=== PATIENT | female | born 1985 | race Caucasian/White ===

== ENCOUNTER 2017-06-19 18:40 | Emergency (ER) | payer MEDICAID, OTHER ==
[2017-06-19 20:26] LABS: Urine Blood 2+ (NEG); Urine Glucose NEGATIVE (NEG); Urine Protein 1+ (NEG)
[2017-06-19 20:33] LABS: Absolute Monocytes 0.8 K/uL (0.1-1.3); Absolute Neutrophil 10.6 K/uL (1.8-8.0); Basophils % 1.5 % (0-1.3); Hematocrit 39.2 % (36.0-45.0); Lymphocytes % 14.6 % (15.3-44.8); MCV 92.6 fL (80-100); MPV 8.2 fL (7.6-11.3); RBC Red Blood Cell Count 4.24 M/uL (3.86-4.86)
[2017-06-19 20:44] LABS: Bicarbonate 27 mEq/L (21-31); Glucose Level 90 mg/dL (65-120); Potassium 3.4 mEq/L (3.6-5.0); Sodium Level 134 mEq/L (135-145)
[2017-06-19 20:45] LABS: BUN Blood Urea Nitrogen 10 mg/dL (6-20); Glomerular Filtration Rate > 90 mL/min (=/>90)
--- NOTE | 2017-06-19 21:00 | RAD REPORT ---
EXAM DESCRIPTION: US - Transvaginal OB - 06/19/2017 8:42 pm CLINICAL HISTORY: Vaginal bleeding, history of COMPARISON: None. FINDINGS: A single gestational sac is seen within the uterus. Within the sac is a single pole with crown-rump length measuring 8 mm corresponding to 6 weeks 5 days gestational age. Cardiac activity is normal measuring 115 BPM. 28 x 25 mm subchorionic bleed is seen along the inferior aspect of the gestational sac. IMPRESSION: Single live early intrauterine gestation as detailed above. 28 x 25 mm subchorionic bleed is present inferiorly.
[2017-06-19 21:43] LABS: Platelet Estimate INCR; Platelets, Giant 1; Urine White Blood Cell Casts OK
[2017-06-19 21:44] LABS: Blood Morphology Comment NOT SEEN (NOT SEEN)
--- NOTE | 2017-06-19 22:04 | ER ---
Nurse's Notes [facility] Name: Sujata Raza Age: 31 yrs Sex: Female : 1985 Arrival Date: 06/19/2017 Time: 18:46 Bed 24 Private MD: Diagnosis: Threatened Presentation: 06/19 18:47 Presenting complaint: Patient states: Vaginal bleeding and mild abdominal cramping that hb started approx 3 hrs ago. Pt reports she is 6 weeks , LMP 04/08/17, . Transition of care: patient was not received from another setting of care. Onset of symptoms was June 19, 2017. Care prior to arrival: None. 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 - Social history:: Smoking status: Patient/guardian denies using tobacco. Screenin:02 Abuse screen: Denies threats or abuse. Nutritional screening: No deficits noted. tl3 Tuberculosis screening: No symptoms or risk factors identified. Fall Risk None identified. Assessment: 20:02 Obstetrical Assessment: Patient reports abdominal cramping, vaginal bleeding . General: tl3 Appears comfortable, slender, well groomed, well developed, well nourished, Behavior is calm, cooperative, appropriate for age. Pain: Denies pain. Neuro: Level of Consciousness is awake, alert, obeys commands, Oriented to person, place, time, situation, Appropriate for age. Cardiovascular: Heart tones S1 S2 present. Respiratory: Airway is patent Trachea midline Breath sounds are clear bilaterally. GI: No signs and/or symptoms were reported involving the gastrointestinal system. : No signs and/or symptoms were reported regarding the genitourinary system. EENT: No signs and/or symptoms were reported regarding the EENT system. Derm: No signs and/or symptoms reported regarding the dermatologic system. 20:18 Reassessment: pt to ultra sound. tl3 21:22 Reassessment: Patient appears in no apparent distress at this time. No changes from tl3 previously documented assessment. Patient and/or family updated on plan of care and expected duration. Pain level reassessed. Patient is alert, oriented x 3, equal unlabored respirations, skin warm/dry/pink. pt resting well, no complaints or needs at this time. 22:30 Reassessment: Patient appears in no apparent distress at this time. No changes from tl3 previously documented assessment. Patient and/or family updated on plan of care and expected duration. Pain level reassessed. Patient is alert, oriented x 3, equal unlabored respirations, skin warm/dry/pink. Vital Signs: 18:49 BP 128 / 67; Pulse 96; Resp 16; Temp 98; Pulse Ox 100% on R/A; Weight 61.23 kg; Height hb 5 ft. 4 in. (162.56 cm); Pain 2/10; 21:22 BP 106 / 61; Pulse 73; Resp 18; Pulse Ox 99% on R/A; tl3 22:30 BP 108 / 76; Pulse 68; Resp 18; Pulse Ox 100% ; tl3 18:49 Body Mass Index 23.17 (61.23 kg, 162.56 cm) hb Vitals: 21:37 Heart Tones pt only 6 weeks. tl3 ED Course: 18:46 Patient arrived in ED. mr 18:49 Triage completed. hb 18:49 Arm band placed on right wrist. hb 19:06 Hugh Robbins PA is PHCP. cp 19:06 Isrrael Landaverde MD is Attending Physician. cp 19:29 Pearl Cabrera, PEPE is Primary Nurse. tl3 20:02 Resting quietly. tl3 20:02 Patient has correct armband on for positive identification. Placed in gown. Bed in low tl3 position. Call light in reach. Side rails up X 1. Adult w/ patient. 20:02 No provider procedures requiring assistance completed. Inserted saline lock: 22 gauge tl3 in left antecubital area, using aseptic technique. 20:23 Urine --Ancillary (enter results) Sent. tl3 20:23 Urine Dipstick--Ancillary (enter results) Sent. tl3 20:23 HCG, Quantitative Sent. tl3 20:23 Quantitative Hcg Sent. tl3 20:23 Abo/rh Typing Sent. tl3 20:23 Basic Metabolic Panel Sent. tl3 20:23 CBC with Diff Sent. tl3 20:42 Transvaginal OB In Process Unspecified. EDMS 20:44 Ultrasound completed. Patient tolerated well. cy 22:03 Hugh Weller MD is Attending Physician. cp 22:03 Bon Amezcua MD is Referral Physician. cp 22:46 IV discontinued, intact, bleeding controlled, No redness/swelling at site. Pressure tl3 dressing applied. Administered Medications: 06/20 20:25 Not Given (Patient Refused): Potassium Effervescent Tablet 25 mEq PO once; dissolve in tl3 4 ounces of water or juice Point of Care Testing: Urine : 06/19 21:37 hCG Reading: Positive; tl3 Outcome: 22:04 Discharge ordered by . cp 22:46 Discharged to home tl3 22:46 Condition: good 22:46 Discharge instructions given to patient, Instructed on discharge instructions, follow up and referral plans. medication usage, Demonstrated understanding of instructions, follow-up care, medications, Prescriptions given X 1, stressed importance of rest and follow up with TERRITORY ACCOUNT REPRESENTATIVE MORGAN 22:48 Patient left the ED. tl3 Signatures: Dispatcher [employer] EDMS Farnaz Harrison Corey, PA PA cp Baxter, Heather, RN RN Eduardo De La Rosa Tammy, RN RN tl3 Corrections: (The following items were deleted from the chart) 20:42 20:23 To radiology for Transvaginal Study (Probe)+US.[email or web address]. tl3 EDMS
--- NOTE | 2017-06-19 22:04 | EDPHYS ---
Physician Documentation [facility] Name: Sujata Raza Age: 31 yrs Sex: Female : 1985 Arrival Date: 06/19/2017 Time: 18:46 Bed 24 Private MD: ED Physician Hugh Weller HPI: 06/19 20:10 This 31 yrs old Female presents to ER via Ambulatory with complaints of cp Vaginal Bleeding, + Preg <12wks. 20:10 The patient presents to the emergency department with abdominal pain, of the lower cp abdomen, vaginal bleeding, that is light, with no clots. Previous pregnancies: in previous pregnancies patient has had , no complications. Associated signs and symptoms: Pertinent negatives: diarrhea, dysuria, fever, vomiting. 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 - Social history:: Smoking status: Patient/guardian denies using tobacco. ROS: 20:25 Constitutional: Negative for body aches, chills, fever, poor PO intake. cp 20:25 Eyes: Negative for injury, pain, redness, and discharge. cp 20:25 ENT: Negative for drainage from ear(s), ear pain, sore throat, difficulty swallowing, difficulty handling secretions. 20:25 Cardiovascular: Negative for chest pain, edema, palpitations. 20:25 Respiratory: Negative for cough, shortness of breath, wheezing. 20:25 Abdomen/GI: Positive for abdominal pain, of the lower abdomen, Negative for vomiting, diarrhea, constipation, anorexia, black/tarry stool, rectal bleeding. 20:25 Back: Negative for pain at rest, pain with movement, radiated pain. 20:25 : Positive for vaginal bleeding, Negative for urinary symptoms. 20:25 Skin: Negative for cellulitis, rash. 20:25 Neuro: Negative for altered mental status, dizziness, headache, syncope, near syncope, weakness. 20:25 All other systems are negative. Exam: 20:30 Constitutional: The patient appears in no acute distress, alert, awake, comfortable, cp non-toxic, well developed, well nourished. 20:30 Head/Face: Normocephalic, atraumatic. cp 20:30 Eyes: Periorbital structures: appear normal, Conjunctiva: normal, no exudate, no injection, Sclera: no appreciated abnormality, Lids and lashes: appear normal, bilaterally. 20:30 ENT: External ear(s): are unremarkable, Nose: is normal, Mouth: is normal, Posterior pharynx: is normal, airway is patent, no erythema, no exudate. 20:30 Neck: ROM/movement: is normal, is supple, without pain, no range of motions limitations, no nuchal rigidity. 20:30 Chest/axilla: Inspection: normal, Palpation: is normal, no crepitus, no tenderness. 20:30 Cardiovascular: Rate: normal, Rhythm: regular. 20:30 Respiratory: the patient does not display signs of respiratory distress, Respirations: normal, no use of accessory muscles, no retractions, no splinting, no tachypnea, labored breathing, is not present, Breath sounds: are clear throughout, no decreased breath sounds, no stridor, no wheezing. 20:30 Abdomen/GI: Inspection: abdomen appears normal, Bowel sounds: active, all quadrants, Palpation: soft, in all quadrants, mild abdominal tenderness, in the bilateral lower abdomen, rebound tenderness, is not appreciated, voluntary guarding, is not appreciated, involuntary guarding, is not appreciated. 20:30 Back: pain, is absent, ROM is normal. 20:30 Skin: cellulitis, is not appreciated, no rash present. Vital Signs: 18:49 BP 128 / 67; Pulse 96; Resp 16; Temp 98; Pulse Ox 100% on R/A; Weight 61.23 kg; Height hb 5 ft. 4 in. (162.56 cm); Pain 2/10; 21:22 BP 106 / 61; Pulse 73; Resp 18; Pulse Ox 99% on R/A; tl3 22:30 BP 108 / 76; Pulse 68; Resp 18; Pulse Ox 100% ; tl3 18:49 Body Mass Index 23.17 (61.23 kg, 162.56 cm) hb MDM: 19:06 Patient medically screened. 21:00 Differential diagnosis: STD, ectopic . 22:02 Data reviewed: vital signs, nurses notes, lab test result(s), radiologic studies, cp ultrasound, and as a result, I will discharge patient. 22:02 Counseling: I had a detailed discussion with the patient and/or guardian regarding: the cp historical points, exam findings, and any diagnostic results supporting the discharge/admit diagnosis, lab results, radiology results, the need for outpatient follow up, an OB/Gyne specialist, to return to the emergency department if symptoms worsen or persist or if there are any questions or concerns that arise at home. 06/19 20:07 Order name: Quantitative Hcg 06/19 20:07 Order name: Abo/rh Typing; Complete Time: 21:15 06/19 20:07 Order name: Basic Metabolic Panel; Complete Time: 21:59 06/19 21:59 Interpretation: Normal except: NA 134; K 3.4. 06/19 20:07 Order name: CBC with Diff; Complete Time: 21:59 06/19 21:16 Interpretation: Normal except: WBC 13.8; PLT 461; OC% 76.9; LYM% 14.6; BASO% 1.5; NEUT cp A 10.6. 06/19 20:07 Order name: HCG, Quantitative; Complete Time: 21:59 EDMS 06/19 22:00 Interpretation: HCGQ 89121.0; Reviewed. 06/19 20:15 Order name: Urine Dipstick--Ancillary (enter results); Complete Time: 21:15 [facility] 06/19 21:15 Interpretation: Normal except: UBLD 2+; UPROT 1+. 06/19 20:07 Order name: Urine Test (obtain specimen); Complete Time: 20:23 06/19 20:07 Order name: IV Saline Lock; Complete Time: 20:23 06/19 20:07 Order name: Labs collected and sent; Complete Time: 20:23 06/19 20:15 Order name: Urine --Ancillary (enter results); Complete Time: 21:15 [facility] 06/19 21:15 Interpretation: URINE PREG POS; Reviewed. 06/19 20:35 Order name: CBC Smear Scan; Complete Time: 21:59 EDMS 06/19 20:42 Order name: Transvaginal OB; Complete Time: 21:15 EDMS 06/19 20:07 Order name: NPO; Complete Time: 20:23 cp 06/19 20:07 Order name: Urine Dipstick-Ancillary (obtain specimen); Complete Time: 20:23 cp Administered Medications: 06/20 20:25 Not Given (Patient Refused): Potassium Effervescent Tablet 25 mEq PO once; dissolve in tl3 4 ounces of water or juice Point of Care Testing: Urine : 06/19 21:37 hCG Reading: Positive; tl3 Disposition: 06/19/17 22:04 Discharged to Home. Impression: Threatened . - Condition is Stable. - Discharge Instructions: Medicines During , Threatened Miscarriage, Pelvic Rest. - Prescriptions for Vitamin 27- 0.8 mg Oral Tablet - take 1 tablet by ORAL route once daily; 60 tablet. - Medication Reconciliation Form, Thank You Letter, Antibiotic Education, Prescription Opioid Use form. - Follow up: Bon Amezcua MD; When: 1 week; Reason: Recheck today's complaints. - Problem is new. - Symptoms are unchanged. Addendum: 06/22/2017 07:16 Co-signature as Attending Physician, Hugh Weller MD I agree with the assessment and c ahuja plan of care. Signatures: Dispatcher [employer] Hugh Huang MD MD cha Page, Corey, PA PA Zuleika Rock, PEPE CANTU Pearl Cabrera RN RN tl3 Corrections: (The following items were deleted from the chart) 06/19 20:42 20:07 Transvaginal Study (Probe)+[email or web address].RAD.BRZ ordered. [facility]
== END 2017-06-19 22:48 | disposition home or self-care (01) ==
LOC: ER 18:40
DX: O20.0 Threatened abortion (principal)
CPT/HCPCS: 36415; 76817; 80048; 81003; 81025; 84702; 85025; 86900; 86901; 99284